=== PATIENT | female | born 1975 | race Caucasian/White ===

== ENCOUNTER 2025-03-31 00:25 | Day surgery (SDC) | payer OTHER, SELFPAY ==
--- OUTSIDE RECORDS SUMMARY | 2024-01-09 03:00 | XMS_ITS ---
Author Organization [facility] Address [address] [place], [place] [id number] Care Team Providers Care School Cleaner Name Role Phone MEHREEN SERINA Unavailable [phone] REASON FOR VISIT *Foot Pain Encounters Encounter Location Date Provider Diagnosis [facility] [address] [facility] [address] [place], [place] [id number] 01/09/2024 SERINA BLACKWELL Plan Of Treatment No Information Progress Notes * CLPerlaDOB:1975 ( 49 yo F)Acc No.[id number]:01/09/2024 Progress Notes Patient: Perla GONSALEZ Provider: Brianne Blackwell DPM :1975 A ge:48 Y S ex:Female Date:01/09/2024 Address:[address] [place] [address] [place] [id number] Subjective: * Chief Complaints: * 1 . *Foot Pain. * Medical History: Objective: * Vitals: Assessment: Plan: * Treatment: * Billing Information: * Visit Code: * Procedure Codes: * Electronic signature of SERINA BLACKWELL DPM on 03/31/2025 at 12:28 AM CDT Sign off status: Pending * Provider: Brianne Blackwell DPM Date: 0 01/09/2024 Generated for Vinod rangel/Vineet/Fiorella on: 12:28 AM CDT
[2024-12-16 10:14] VITALS: BMI 33.5
[2025-03-20 10:43] VITALS: BMI 33.3
--- OUTSIDE RECORDS SUMMARY | 2025-03-31 00:28 | XMS_ITS | Clinical Summary ---
Author Organization [facility] Address [address] [place] [address] Care Team Providers Care Blade Balancer Name Role Phone Serina Schulte MD Primary Care Provider [phone] Social History Tobacco Use Types Packs/Day Years Used Date Smoking Tobacco: Never Assessed Comments No Sex and Gender Information Value Date Recorded Sex Assigned at Not on file Legal Sex Female 12:30 PM CDT Gender Identity Female 10/27/2021 2:58 PM CDT Sexual Orientation Straight 10/27/2021 2: 58 PM CDT Plan of Treatment Health Maintenance Due Date Last Done Comments Cervical Cancer Screening Pap Smear (Age 30 to 64) Every 3 Years 1976 Colorectal Cancer Screening Colonoscopy (10 Years) 1976 Annual Physical 1979 Hepatitis C 1994 DTaP, Tdap and Td Vaccines (1 - Tdap) 1995 Hepatitis B Vaccines (1 of 3 - 19+ 3-dose series) 1995 Cervical Cancer Screening Pap with HPV Testing (Age 30 to 64) Every 5 Years 2006 Cervical Cancer Screening with HPV 2006 COVID-19 Vaccine ( season) 2025 06/14/2021, 09/07/2020, 08/17/2020 Influenza Adult (#1) 2025 04/26/2021, 04/11/2020, 04/12/2019 Mammogram Screening 05/15/2026 05/15/2024, 04/19/2023, 11/03/2021, Additional history exists Meningococcal B Vaccine Aged Out No l onger eligible based on patient's age to complete this topic Meningococcal Vaccine Aged Out No abdoulaye jorgel uis eligible based on patient's age to complete this topic Pneumococcal Vaccine: Pediatrics (0 to 5 Years) and At-Risk Patients (6 to 49 Years) Aged Out No longer eligible based on patient's age to complete this topic RSV Immunizations Under 20 Months Aged Out No longer eligible based on patient's age to complete this topic Procedures Procedure Name Priority Date/Time Associated Diagnosis Comments MG SCREENING W EVELIA SAUL DIGI Routine 05/15/2024 11:01 AM VULCANIZING MACHINE OPERATOR Screening mammogram for breast cancer from Last 3 Months or Most Recently Relevant to Health Maintenance Results * MG SCREENING W EVELIA SAUL DIGI (05/15/2024 11:01 AM VULCANIZING MACHINE OPERATOR) Anatomical Region Laterality Modality Breast Bilateral Mammography 05/15/2024 2:47 PM VULCANIZING MACHINE OPERATOR Impressions 05/15/2024 3:17 PM VULCANIZING MACHINE OPERATOR IMPRESSION: No significant interval change. No mammographic evidence of malignancy. RECOMMENDATION: Routine ScreeningBilateral OVERALL IMAGING ASSESSMENT: ACR BI-RADS 1 - NEGATIVE. Ordered By: SERINA SCHULTE Interpreted By: Anil Anna, 05/15/2024 2:47 PM Narrative 05/15/2024 3:17 PM VULCANIZING MACHINE OPERATOR [facility] Imaging [facility] [place] [id number] EXAMINATION: MG SCREENING W EVELIA SAUL DIGI INDICATIONS: Screening TECHNIQUE: Digital full field CC and MLO screening mammography bilaterally to include 3-D Tomosynthesis technique. This study was read with the assistance of a computer-aided detection system. HISTORY: No reported breast complaint. No documented personal or first degree family history of breast cancer. No documented prior breast biopsy. COMPARISON: 04/19/2023, 10/24/2021, 04/03/2018, 03/03/2017, 02/23/2017. TISSUE DENSITY: There are scattered areas of fibroglandular density. FINDINGS: No suspicious microcalcification or mass. No developing asymmetry or architectural distortion. No axillary adenopathy. Serina Schulte MD MAMMO Final Result from Last 3 Months or Most Recently Relevant to Health Maintenance Insurance [employer] [facility] Care Teams Blade Balancer Relationship Specialty Start Date End Date Serina Schulte MD [address] [place] [id number] PCP - General FAMILY PRACTICE 03/21/18
--- OUTSIDE RECORDS SUMMARY | 2025-03-31 00:28 | XMS_ITS | Patient Health Record ---
Author Organization [facility] Address [address] [facility] [address] [place], [place] [id number] Reason For Referral No Information Plan Of Treatment No Information
--- OUTSIDE RECORDS SUMMARY | 2025-03-31 00:28 | XMS_ITS | Clinical Summary ---
Author Organization [facility] Virtual Care Address [address] [place] [phone] Phone Care Team Providers Care Catapult And Arresting Gear Officer Name Role Phone Bebe Bolivar Primary Care Provider [phone] Social History Tobacco Use Types Packs/Day Years Used Date Smoking Tobacco: Never Assessed Personal Safety Answer Date Recorded Getting School Help Needed Not on file 12/11 Comments Unknown Sex and Gender Information Value Date Recorded Sex Assigned at Not on file Legal Sex Female 1:30 PM CDT Gender Identity Female 12/25/2023 12:00 PM CDT Sexual Orientation Straight 12/25/2023 12 :00 PM CDT Last Filed Vital Signs Vital Sign Reading Time Taken Comments Blood Pressure 149/92 12/28/2023 9:10 AM CDT Pulse - - Temperature - - Respiratory Rate - - Oxygen Saturation - - Inhaled Oxygen Concentration - - Weight - - Height - - Body Mass Index - - Plan of Treatment Health Maintenance Due Date Last Done Comments Cervical Cancer Screening 1976 Colon Cancer Screening-Colonoscopy 1976 Depression Screening 1976 Hepatitis C Screening 1976 DTaP/Tdap/Td Vaccine (1 - Tdap) 1987 Hepatitis B Screening 1994 Regular Well Visit/Exam 18-64 1994 Breast Cancer Screening-Mammogram 04/19/2024 04/19/2023, 04/19/2023, 11/03/2021, Additional history exists Covid-19 Vaccine ( season) 2025 06/14/2021, 09/07/2020, 08/17/2020 Influenza Vaccine (#1) 2025 , 04/26/2021, 04/11/2020, Additional history exists Pneumococcal vaccine <65 Aged Out No longer eligible based on patient's age to complete this topic Insurance HEALTHCARE O O Care Teams Catapult And Arresting Gear Officer Relationship Specialty Start Date End Date Bebe Bolivar PA [address] [place] [id number] PCP - General Family Medicine 12/25/23
--- NOTE | 2025-03-31 07:14 | P.PNAN_ITS ---
Anes - Initial Pre Proc Eval Procedure: Operation Date: 03/31/25 13:00 Proposed Procedures p Screening Colonoscopy - Yaakov Bird MD Date/Time: 03/31/25 07:14 Surgeon: Yaakov Bird MD Pre Op Diagnosis: Encounter for screening for malignant neoplasm of Patient Data Age: 49 Gender: F Height: 1.63 m Weight: 88 kg Allergies Allergy/AdvReac Type Severity Reaction Status Date / Time No Known Allergies Allergy Verified 03/31/25 11:39 Home Medications ?Medication ?Instructions ?Recorded ?Confirmed ?Type cholecalciferol (vitamin D3) 25 25 mcg PO DAILY #2 cap s 10/25/22 03/31/25 Rx mcg (1,000 unit) capsule amlodipine 2.5 mg tablet (Norvasc) 2.5 mg PO DAILY #90 tabs 11/13/24 03/31/25 Rx levothyroxine 75 mcg tablet See Rx Instructions .Route 12/12/24 03/31/25 Rx .COMPLEX #90 tabs lisinopril 20 See Rx Instructions .Route 0 12/30/24 03/31/25 Rx mg-hydrochlorothiazide 25 mg tablet .COMPLEX #90 tabs amlodipine 5 mg tablet See Rx Instructions .Route 0 03/03/25 03/31/25 Rx .COMPLEX #90 tabs Patient hx anesthesia problems: none Family hx anesthesia problems: none Results Review: All pre-operative results and documents have been reviewed as part of the pre- operative evaluation. [facility] Past Medical History Medical History (Updated 08/16/24 @ 17:19 by Binta Lawton PA-C) MAILE (generalized anxiety disorder) Mixed hyperlipidemia Primary hypertension Vitamin D deficiency Hypothyroidism Surgical History Surgical History History of bunionectomy of left great toe 05/18/2015 History of section 03/26/2013 History of miscarriage 08/2009 Family History Family History Father Hypertension Mother No problems noted. Grandparent Heart disease Acute myocardial infarction Hypertension Cerebrovascular accident Lung cancer Social History Social History Smoking status: Never smoker Tobacco type: cigarettes Alcohol intake: current Drinks per week: 6 Substance use: never Substance use type: does not use Lack of Transportation: No Lack of Food: Never True Current Housing: I Have Housing Concerned About Future Housing: No Difficulty Paying Gas/Electric Bills: No Difficulty Paying for Meds: No Currently Unemployed: No Education: Trade/Vocational Certificate Difficulty w/ Childcare or Family Care: No Living arrangements: with family Occupation/Education: occupation Gender identity (if verbalized by the patient): Female Sexual Orientation (if Verbalized by the Patient): Straight or Heterosexual Spiritual care concerns: No Anes - Eval Final PreProcedure Day of Procedure 03/31/25 07:14 Patient weight: obese Heart: regular rate and rhythm Lungs: clear to auscultation Airway: Mallampati scale class II Neurological: alert and oriented Last oral intake: >/= 8 hours ASA classification: III Emergent: no Anesthetic plan: proceed Anesthesia type and monitoring: general GIVS and standard monitoring Results Review: All pre-operative results and documents have been reviewed as part of the pre- operative evaluation. Informed Consent: The patient's anesthetic plan and its attendant risks and benefits were discussed with the patient/family/POA. Questions were solicited and answers provided to the satisfaction of the patient/family/POA.
[2025-03-31 11:41] VITALS: BP 137/94; PULSE 80; RESP 18; TEMP 36.8; O2SAT 97
[2025-03-31 11:45] LABS: BEDSIDEPREGUCG Negative (Negative)
[2025-03-31] MEDS: LACTATED RINGERS 1,000 ML 150 ML IV CONT (11:50)
--- NOTE | 2025-03-31 12:51 | SUR.PREOP ---
pt notified of delay in cases, no needs verbalized at this time.
--- NOTE | 2025-03-31 13:29 | P.HP_ITS ---
H&P: HPI History of Present Illness Date/Time: 03/31/25 13:29 Chief Complaint: Screening colonoscopy Narrative: This is the patient's first colonoscopy. There are no GI symptoms and there is no family history of colorectal cancer. Review of Systems Review of Systems: All systems reviewed & are unremarkable except as noted in HPI and below PMFSH Past Medical History Medical History (Updated 03/31/25 @ 13:29 by Yaakov Bird MD) MAILE (generalized anxiety disorder) Mixed hyperlipidemia Primary hypertension Vitamin D deficiency Hypothyroidism Surgical History Surgical History (Reviewed 08/16/24 @ 14:59 by Lourdes Junior [facility]) History of bunionectomy of left great toe 05/18/2015 History of section 03/26/2013 History of miscarriage 08/2009 Family History Family History (Reviewed 08/16/24 @ 14:59 by Lourdes Junior [facility]) Father Hypertension Mother No problems noted. Grandparent Heart disease Acute myocardial infarction Hypertension Cerebrovascular accident Lung cancer Social History Social History (Reviewed 08/16/24 @ 14:59 by Lourdes Junior [facility]) Smoking status: Never smoker Tobacco type: cigarettes Alcohol intake: current Drinks per week: 6 Substance use: never Substance use type: does not use Lack of Transportation: No Lack of Food: Never True Current Housing: I Have Housing Concerned About Future Housing: No Difficulty Paying Gas/Electric Bills: No Difficulty Paying for Meds: No Currently Unemployed: No Education: Trade/Vocational Certificate Difficulty w/ Childcare or Family Care: No Living arrangements: with family Occupation/Education: occupation Gender identity (if verbalized by the patient): Female Sexual Orientation (if Verbalized by the Patient): Straight or Heterosexual Spiritual care concerns: No Meds Home Medications and Allergies Home Medications ?Medication ?Instructions ?Recorded ?Confirmed ?Type cholecalciferol (vitamin D3) 25 25 mcg PO DAILY #2 cap s 10/25/22 03/31/25 Rx mcg (1,000 unit) capsule amlodipine 2.5 mg tablet (Norvasc) 2.5 mg PO DAILY #90 tabs 11/13/24 03/31/25 Rx levothyroxine 75 mcg tablet See Rx Instructions .Route 12/12/24 03/31/25 Rx .COMPLEX #90 tabs lisinopril 20 See Rx Instructions .Route 0 12/30/24 03/31/25 Rx mg-hydrochlorothiazide 25 mg tablet .COMPLEX #90 tabs amlodipine 5 mg tablet See Rx Instructions .Route 0 03/03/25 03/31/25 Rx .COMPLEX #90 tabs Allergies Allergy/AdvReac Type Severity Reaction Status Date / Time No Known Allergies Allergy Verified 03/31/25 11:39 Vital Signs Vital Signs - 24 hr 03/31/25 11:41 Temperature 98.2 F Pulse Rate 80 Respiratory Rate 18 Blood Pressure 137/94 H Pulse Oximetry 97 Oxygen Delivery Room Air Exam Const: General: cooperative and healthy appearing Resp: Effort & Inspection: normal respiratory effort and able to speak in complete sentences Auscultation: clear to auscultation bilaterally Cardio: Rate: regular rate Rhythm: regular rhythm GI: Inspection: normal to inspection GI Palp: No No hepatosplenomegaly present Auscultation: normal bowel sounds Rectal Exam: deferred Skin: General skin exam: normal color Psych: Appearance: grossly normal Mental Status: mental status grossly normal Assessment and Plan Assessment and plan (1) Encounter for screening colonoscopy: Code(s): Z12.11 - Encounter for screening for malignant neoplasm of colon Status: Acute Assessment and Plan: The patient is deemed a good candidate for the procedure. Consent signed. Will proceed.
[2025-03-31 13:54] VITALS: BP 120/75; PULSE 78; RESP 19; O2SAT 94
[2025-03-31 14:04] VITALS: BP 126/77; PULSE 74; RESP 20; O2SAT 98
[2025-03-31 14:14] VITALS: BP 127/88; PULSE 73; RESP 20; O2SAT 100
== END 2025-03-31 14:24 | disposition home or self-care (01) ==
PROVIDERS: Anesthesiology; PCP Family Medicine; Referring Provider Internal Medicine Gastroenterology; Visit Provider Internal Medicine Gastroenterology
PROC: 0DJD8ZZ Inspection of Lower Intestinal Tract, Via Natural or Artificial Opening Endoscopic (ICD-10-PCS; CPT 45378; principal; 2025-03-31 13:00)
DX: Z12.11 Encounter for screening for malignant neoplasm of colon (principal); E78.2 Mixed hyperlipidemia; I10 Essential (primary) hypertension; E55.9 Vitamin D deficiency, unspecified; E03.9 Hypothyroidism, unspecified; F41.9 Anxiety disorder, unspecified; E66.9 Obesity, unspecified; Z68.33 Body mass index [BMI] 33.0-33.9, adult; Z98.890 Other specified postprocedural states; Z80.1 Family history of malignant neoplasm of trachea, bronchus and lung; Z82.49 Family history of ischemic heart disease and other diseases of the circulatory system
CPT/HCPCS: 45378; J2704; J7120